=== PATIENT | female | born 2000 | race Hispanic/Latino ===

== ENCOUNTER 2024-05-26 14:08 | Emergency (ER) | payer BC, OTHER | END 2024-05-26 15:35 | disposition home or self-care (01) | LOC: CSHERS 14:08 | DX: O99.891 Other specified diseases and conditions complicating pregnancy (principal); R10.9 Unspecified abdominal pain; Z3A.36 36 weeks gestation of pregnancy | CPT/HCPCS: 99283 ==

== ENCOUNTER 2024-05-26 15:46 | Day surgery (SDC) | payer BC, OTHER ==
[2024-05-26 16:38] VITALS: BMI 32.9
[2024-05-26] MEDS ORDERED: hydrALAZINE 20 MG/ML VIAL SLOW IVP PRN (16:42)
== END 2024-05-26 16:30 | disposition home or self-care (01) ==
LOC: CSHLD/OP 15:46
PROVIDERS: ATTEND Family Medicine
DX: O99.613 Diseases of the digestive system complicating pregnancy, third trimester (principal); K52.9 Noninfective gastroenteritis and colitis, unspecified; O99.891 Other specified diseases and conditions complicating pregnancy; R10.9 Unspecified abdominal pain; Z3A.36 36 weeks gestation of pregnancy
CPT/HCPCS: 99282; 99283

== ENCOUNTER 2024-05-28 15:46 | Day surgery (SDC) | payer BC, OTHER ==
[2024-05-28 16:34] VITALS: BMI 32.9
== END 2024-05-28 20:34 | disposition home or self-care (01) ==
LOC: CSHLD/OP 15:46
PROVIDERS: ATTEND Family Medicine
DX: O36.5930 Maternal care for other known or suspected poor fetal growth, third trimester, not applicable or unspecified (principal); Z79.82 Long term (current) use of aspirin; Z79.899 Other long term (current) drug therapy; Z3A.36 36 weeks gestation of pregnancy
CPT/HCPCS: 59025; 76815; 76819; 99282

== ENCOUNTER 2024-05-31 18:35 | Inpatient (IN) | payer BC, OTHER ==
[2024-05-31] MEDS ORDERED: Famotidine/PF 20 mg/2ml Vial SLOW IVP PRN (18:47)
[2024-05-31] MEDS ORDERED: Methylergonovine 0.2 MG/ML VIAL IM PRN (18:47)
[2024-05-31] MEDS ORDERED: hydrALAZINE 20 MG/ML VIAL SLOW IVP PRN ×2 (18:47→23:50)
[2024-05-31] MEDS ORDERED: Carboprost 250 MCG/ML AMP IM PRN (18:47)
[2024-05-31] MEDS ORDERED: Bicitra 30 ML UDCUP PO PRN (18:47)
[2024-05-31] MEDS ORDERED: Diphenoxylate HCl/Atropine Tablet PO PRN (18:47)
[2024-05-31] MEDS ORDERED: Promethazine HCl 25 MG/ML VIAL IM PRN ×3 (18:47→23:50)
[2024-05-31] MEDS ORDERED: Ondansetron PF 4 MG/2 ML Vial IVP PRN ×4 (18:47→23:50)
[2024-05-31] MEDS ORDERED: Tranexamic Acid 1,000 MG/10 ML VIAL IVP PRN (18:47)
[2024-05-31] MEDS ORDERED: Misoprostol 200 MCG TAB PR PRN (18:47)
[2024-05-31 19:00] VITALS: BMI 33.5
[2024-05-31] MEDS ORDERED: CEFAZOLIN 2 GM in Sodium Chloride 0.9% 100 ML IVPB SCH (19:00)
[2024-05-31] MEDS ORDERED: Lactated Ringer's 1,000 ML IV SCH (19:00)
[2024-05-31] MEDS ORDERED: Oxytocin 30 units/NS 500 ML 500 ML IV SCH (19:00)
[2024-05-31 19:42] LABS: Hemoglobin 13.1 g/dL (12.0-15.5); Mean Corpuscular HGB CONC 35.4 g/dL (32.0-36.0); Mean Corpuscular Hemoglobin 32.1 pg (27.0-33.0); Mean Corpuscular Volume 90.7 fL (81.6-98.3); Mean Platelet Volume 10.5 fL (7.4-10.4); Platelet Count 222 10x3/uL (150-450); RBC Distribution Width 13.2 % (11.5-14.5); Red Blood Cell (RBC) Count 4.08 10x6/uL (3.90-5.03); White Blood Cell (WBC) Count 8.8 10x3/uL (3.5-10.5)
[2024-05-31] MEDS ORDERED: Moisturizing Cream (Eucerin) 113 GM JAR TOP PRN (19:51)
[2024-05-31] MEDS ORDERED: Meperidine HCl/PF 25 MG (1 mL) VIAL SLOW IVP PRN (19:51)
[2024-05-31] MEDS ORDERED: fentaNYL 50 mcg/mL 1 mL Vial SLOW IVP PRN (19:51)
[2024-05-31] MEDS ORDERED: Naloxone HCl 0.4 mg/ml Vial IV PRN (19:51)
[2024-05-31] MEDS ORDERED: Naloxone HCl 0.4 mg/ml Vial IVP PRN ×2 (19:51)
[2024-05-31] MEDS ORDERED: diphenhydrAMINE 50 MG/ML VIAL IVP PRN (19:51)
[2024-05-31] MEDS ORDERED: Communication Order-Pharmacy FS SCH (20:00)
[2024-05-31] MEDS ORDERED: Ketorolac Tromethamine 30 MG (1 mL) VIAL IVP SCH (20:00)
[2024-05-31 20:26] LABS: HBsAg Index 0.18 S/CO (0-0.99); Hep B Surf Ag - L&D Non-Reactive S/CO (NonReactive)
[2024-05-31 20:27] LABS: Syphilis Antibody Nonreactive (Nonreactive); Syphilis Antibody Index 0.48 S/CO (<1.00 Non-Reactive)
[2024-05-31 20:44] LABS: Analyzer IN Cardio CS NICU; Critical Notified By: clumpkins rt; RapidComm Collect By NURSSG2
[2024-05-31 20:47] LABS: Analyzer IN Cardio CS NICU; Critical Notified By: clumpkins rt; RapidComm Collect By MURSSG2; pH (Cord, venous) 7.319 (7.250-7.350)
[2024-05-31] MEDS: Ketorolac Tromethamine 30 MG (1 mL) VIAL IVP PRN (22:09)
[2024-05-31] MEDS ORDERED: Boostrix 0.5 ML (Tdap) VIAL (>/=7 yrs of age) IM ONE (23:50)
[2024-05-31] MEDS ORDERED: diphenhydrAMINE 25 MG CAP PO PRN (23:50)
[2024-05-31] MEDS ORDERED: Bisacodyl 10 MG SUPP PR PRN (23:50)
[2024-05-31] MEDS ORDERED: Lanolin Ointment 7 GM TUBE TOP PRN (23:50)
[2024-05-31] MEDS ORDERED: Meperidine HCl/PF 25 MG (1 mL) VIAL IM PRN (23:50)
[2024-05-31] MEDS: Oxytocin 10 UNITS/ML VIAL ONE (23:59)
[2024-05-31] MEDS: PHENYLEPHRINE-NS 100 MCG/ML 10 ML SYRINGE ONE (23:59)
[2024-05-31] MEDS: Morphine PF 10 MG/10 ML VIAL ONE (23:59)
[2024-05-31] MEDS: Dexamethasone 10 MG/ML VIAL ONE (23:59)
[2024-06-01] MEDS: Ondansetron PF 4 MG/2 ML Vial ONE (00:36)
[2024-06-01] MEDS: Promethazine HCl 25 MG/ML VIAL ONE (00:37)
[2024-06-01 04:03] LABS: Hematocrit 37.9 % (34.9-44.5); Hemoglobin 13.3 g/dL (12.0-15.5); Mean Corpuscular HGB CONC 35.1 g/dL (32.0-36.0); Mean Corpuscular Hemoglobin 32.1 pg (27.0-33.0); Mean Corpuscular Volume 91.5 fL (81.6-98.3); Mean Platelet Volume 10.6 fL (7.4-10.4); Platelet Count 184 10x3/uL (150-450); RBC Distribution Width 13.2 % (11.5-14.5); Red Blood Cell (RBC) Count 4.14 10x6/uL (3.90-5.03); White Blood Cell (WBC) Count 15.4 10x3/uL (3.5-10.5)
[2024-06-01] MEDS: Ketorolac Tromethamine 30 MG (1 mL) VIAL IVP SCH (04:15)
[2024-06-01] MEDS: Docusate 100 MG CAP PO SCH (08:08)
[2024-06-01] MEDS: Prenatal Vitamin 1 TAB PO SCH (08:09)
[2024-06-01] MEDS: Ferrous Sulfate 325 MG TAB PO SCH (11:36)
[2024-06-01] MEDS: Simethicone Chewable 80 MG TAB PO PRN (20:33)
[2024-06-01] MEDS: Ibuprofen 800 MG TAB PO SCH (20:33)
[2024-06-01] MEDS: HYDROcodone/Acetaminophen 5/325 mg Tablet PO PRN (20:33)
[2024-06-02] MEDS: Magnesium Citrate 300 ML BOT PO SCH (09:42)
[2024-06-03 11:57] VITALS: BP 104/58; TEMP 97.6
== END 2024-06-03 17:47 | disposition home or self-care (01) | DRG 788 ==
LOC: CSHLD 18:35 → CSHPP 23:30
PROVIDERS: ADMIT Family Medicine; ATTEND Family Medicine
PROC: 10D00Z1 Extraction of Products of Conception, Low, Open Approach (ICD-10-PCS; principal; 2024-05-31)
PROC: 4A033R1 Measurement of Arterial Saturation, Peripheral, Percutaneous Approach (ICD-10-PCS; 2024-05-31)
DX: O32.1XX0 Maternal care for breech presentation, not applicable or unspecified (principal); O36.5930 Maternal care for other known or suspected poor fetal growth, third trimester, not applicable or unspecified; Z3A.36 36 weeks gestation of pregnancy; Z37.0 Single live birth; O76 Abnormality in fetal heart rate and rhythm complicating labor and delivery
CPT/HCPCS: 36415; 51702; 82805; 85027; 86780; 86850; 86900; 86901; 87340; 88307; C1889; J1100; J1885; J2274; J2405; J2550; J2590